=== PATIENT | male | born 1950 | race Caucasian/White ===

== ENCOUNTER → 2018-07-20 | Outpatient (REF) | payer MEDICARE, OTHER | LOC: M LAB REF 12:39 | DX: M10.072 Idiopathic gout, left ankle and foot (principal) | CPT/HCPCS: 84550 ==

== ENCOUNTER → 2018-09-09 | Outpatient (REF) | payer MEDICARE, OTHER ==
[~2018-09-09] MED LIST: ASPI1TAB PO; ENALAPRIL; LIPITOR; MULT1TAB10 PO; PROAAER10 IN
[2018-09-09 18:02] LABS: BASO % 0.6 % (0.0-1.0); EOS # 0.1 10^3/uL (0.0-0.50); EOS % 1.3 % (0.0-3.0); HEMATOCRIT 44.9 % (42.0-52.0); HEMOGLOBIN 14.9 g/dl (13.5-17.5); LYMPH # 1.4 10^3/uL (1.5-4.5); LYMPH % 26.1 % (24.0-44.0); MEAN CORPUSCULAR HEMOGLOBIN 30.3 pg (27.0-33.0); MEAN CORPUSCULAR HGB CONC 33.2 g/dl (32.0-36.5); MEAN CORPUSCULAR VOLUME 91.3 fl (80.0-96.0); MONO # 0.4 10^3/uL (0.0-0.8); MONO % 7.7 % (0.0-5.0); NEUTROPHILS # 3.3 10^3/uL (1.8-7.7); NEUTROPHILS % 63.9 % (36.0-66.0); PLATELET COUNT, AUTOMATED 165 10^3/uL (150-450); RED BLOOD COUNT 4.92 10^6/uL (4.30-6.10); WHITE BLOOD COUNT 5.2 10^3/uL (4.0-10.0)
[2018-09-09 18:44] LABS: ERYTHROCYTE SEDIMENTATION RATE 3 mm/hr (0-20)
== END ==
LOC: M LAB REF 16:57
PROVIDERS: ATTEND Internal Medicine Pulmonary Disease
DX: J84.9 Interstitial pulmonary disease, unspecified (principal)

== ENCOUNTER → 2018-09-17 | Outpatient (CLI) | payer MEDICARE, BC, OTHER ==
--- NOTE | 2018-09-17 16:20 | PFTRPT ---
Height: 71.00 Inches Weight: 180.00 Lbs BSA: 2.02 Diagnosis: J84.9 DATE OF PROCEDURE: 09/17/2018 ORDERED BY: Dr. Gonzalez Spirometry: Pulmonary function of excellent technical quality. Forced vital capacity normal. FEV1 in proportion. Obstructive index is, therefore, normal. Flow Volume Loop: Expiratory limb of the flow volume loop is normal. Lung Volumes: Slow vital capacity is in proportion. Diffusing Capacity: Diffusing capacity is normal. Hemoglobin: Hemoglobin acceptable at 16.2. IMPRESSION: Normal study. MTDD
== END ==
LOC: M CARPUL 14:40
PROVIDERS: ATTEND Internal Medicine Pulmonary Disease
DX: J84.9 Interstitial pulmonary disease, unspecified (principal)

== ENCOUNTER → 2020-06-20 | Outpatient (CLI) | payer MEDICARE, BC, OTHER ==
[~2020-06-20] MED LIST changes: -ASPI1TAB PO; +ASPI81TA26 PO
[2020-06-20 13:58] LABS: BASO % 0.9 % (0.0-1.0); EOS # 0.1 10^3/uL (0.0-0.5); EOS % 3.1 % (0.0-3.0); HEMATOCRIT 45.7 % (42.0-52.0); HEMOGLOBIN 15.1 g/dl (13.5-17.5); LYMPH # 1.3 10^3/uL (1.5-5.0); LYMPH % 28.6 % (24.0-44.0); MEAN CORPUSCULAR HEMOGLOBIN 31.1 pg (27.0-33.0); MONO # 0.7 10^3/uL (0.0-0.8); MONO % 14.5 % (0.0-5.0); NEUTROPHILS # 2.4 10^3/uL (1.5-8.5); PLATELET COUNT, AUTOMATED 175 10^3/uL (150-450); RED BLOOD COUNT 4.86 10^6/uL (4.30-6.10); WHITE BLOOD COUNT 4.6 10^3/uL (4.0-10.0)
[2020-06-20 14:32] LABS: BILIRUBIN,TOTAL 0.6 MG/DL (0.2-1.0); BLOOD UREA NITROGEN 23 MG/DL (7-18); CARBON DIOXIDE LEVEL 26 MEQ/L (21-32); CHLORIDE LEVEL 111 MEQ/L (98-107); CREATININE FOR GFR 0.92 MG/DL (0.70-1.30); GLOMERULAR FILTRATION RATE > 60.0 (>42); GLUCOSE, FASTING 84 MG/DL (70-100); POTASSIUM SERUM 4.3 MEQ/L (3.5-5.1); SODIUM LEVEL 142 MEQ/L (136-145); TOTAL PROTEIN 6.8 GM/DL (6.4-8.2)
[2020-06-20 14:37] LABS: ERYTHROCYTE SEDIMENTATION RATE 5 mm/hr (0-20)
[2020-06-20 17:14] LABS: ALT/SGPT 30 U/L (12-78)
== END ==
LOC: M LAB 13:20
PROVIDERS: ATTEND Internal Medicine Rheumatology
DX: M35.9 Systemic involvement of connective tissue, unspecified (principal); Z79.899 Other long term (current) drug therapy

== ENCOUNTER → 2022-09-27 | Outpatient (REF) | payer MEDICARE, OTHER, BC | LOC: M LAB REF 11:51 | PROVIDERS: ATTEND Internal Medicine | DX: M35.9 Systemic involvement of connective tissue, unspecified (principal); R76.8 Other specified abnormal immunological findings in serum ==

== ENCOUNTER → 2022-11-20 | Outpatient (REF) | payer MEDICARE, OTHER, BC | LOC: M LAB REF 11:26 | PROVIDERS: ATTEND Internal Medicine | DX: M10.072 Idiopathic gout, left ankle and foot (principal) ==

== ENCOUNTER → 2023-01-03 | Outpatient (CLI) | payer MEDICARE, OTHER, BC | LOC: M PLAIMG 13:48 | PROVIDERS: ATTEND Internal Medicine Pulmonary Disease | DX: J84.9 Interstitial pulmonary disease, unspecified (principal) ==

== ENCOUNTER → 2023-01-07 | Outpatient (CLI) | payer MEDICARE, BC, OTHER ==
[2023-01-07 12:20] LABS: HEMATOCRIT 47.5 % (42.0-52.0); HEMOGLOBIN 15.9 g/dl (13.5-17.5); MEAN CORPUSCULAR HEMOGLOBIN 30.9 pg (27.0-33.0); MEAN CORPUSCULAR HGB CONC 33.5 g/dl (32.0-36.5); MEAN CORPUSCULAR VOLUME 92.2 fl (80.0-96.0); PLATELET COUNT, AUTOMATED 185 10^3/uL (150-450); RED BLOOD COUNT 5.15 10^6/uL (4.30-6.10); WHITE BLOOD COUNT 4.6 10^3/uL (4.0-10.0)
[2023-01-07 12:31] LABS: ALKALINE PHOSPHATASE 77 U/L (46-116); ALT/SGPT 28 U/L (7.0-40); AST/SGOT 24 U/L (<34); BILIRUBIN,TOTAL 0.9 MG/DL (0.3-1.2); BLOOD UREA NITROGEN 17 MG/DL (9-23); CALCIUM LEVEL 9.5 MG/DL (8.3-10.6); CARBON DIOXIDE LEVEL 26 MMOL/L (20-31); CHLORIDE LEVEL 107 MMOL/L (98-107); CREATININE FOR GFR 0.81 MG/DL (0.70-1.30); GLOMERULAR FILTRATION RATE > 60.0 (>42); GLUCOSE, FASTING 175 MG/DL (74-106); POTASSIUM SERUM 3.8 MMOL/L (3.5-5.1); SODIUM LEVEL 140 MMOL/L (136-145); TOTAL PROTEIN 6.7 G/DL (5.7-8.2)
== END ==
LOC: M LAB 11:19
PROVIDERS: ATTEND Internal Medicine Pulmonary Disease
DX: J84.9 Interstitial pulmonary disease, unspecified (principal)

== ENCOUNTER → 2023-01-14 | Outpatient (CLI) | payer MEDICARE, BC, OTHER ==
[~2023-01-14] MED LIST changes: +ISOVUE-370 76% 100ML VIAL As Ordered ONE
== END ==
LOC: M RAD 09:53
PROVIDERS: ATTEND Internal Medicine Pulmonary Disease
DX: J84.9 Interstitial pulmonary disease, unspecified (principal); R06.00 Dyspnea, unspecified; M35.02 Sjogren syndrome with lung involvement
CPT/HCPCS: 71275; Q9967

== ENCOUNTER 2023-01-28 16:10 | Observation (INO) | payer MEDICARE, BC, OTHER ==
[2023-01-27 20:31] VITALS: BP 160/66
[~2023-01-28] VITALS: Ht 180.3 cm; Wt 84.9 kg
[~2023-01-28 16:10] MED LIST changes: -ISOVUE-370 76% 100ML VIAL As Ordered ONE
[2023-01-28 16:51] LABS: BASO % 0.6 % (0.0-1.0); EOS % 0.2 % (0.0-3.0); HEMOGLOBIN 15.8 g/dl (13.5-17.5); LYMPH # 0.9 10^3/uL (1.5-5.0); LYMPH % 18.6 % (24.0-44.0); MEAN CORPUSCULAR HEMOGLOBIN 31.2 pg (27.0-33.0); MEAN CORPUSCULAR HGB CONC 33.6 g/dl (32.0-36.5); MEAN CORPUSCULAR VOLUME 92.9 fl (80.0-96.0); MONO # 0.5 10^3/uL (0.0-0.8); MONO % 11.7 % (2.0-8.0); NEUTROPHILS # 3.1 10^3/uL (1.5-8.5); NEUTROPHILS % 66.7 % (36.0-66.0); PLATELET COUNT, AUTOMATED 180 10^3/uL (150-450); RED BLOOD COUNT 5.06 10^6/uL (4.30-6.10); WHITE BLOOD COUNT 4.6 10^3/uL (4.0-10.0)
[2023-01-28] MEDS ORDERED: AMLO1TAB24 PO (17:25)
[2023-01-28 17:33] LABS: ALBUMIN 4.2 G/DL (3.2-5.2); ALKALINE PHOSPHATASE 68 U/L (46-116); ALT/SGPT 67 U/L (7.0-40); AST/SGOT 64 U/L (<34); BILIRUBIN,DIRECT 0.2 MG/DL (<0.4); BILIRUBIN,TOTAL 0.9 MG/DL (0.3-1.2); BLOOD UREA NITROGEN 20 MG/DL (9-23); CALCIUM LEVEL 9.9 MG/DL (8.3-10.6); CARBON DIOXIDE LEVEL 27 MMOL/L (20-31); CHLORIDE LEVEL 107 MMOL/L (98-107); CREATININE FOR GFR 0.79 MG/DL (0.70-1.30); FREE T4 1.11 NG/DL (0.89-1.76); GLOMERULAR FILTRATION RATE > 60.0 (>42); GLUCOSE, FASTING 115 MG/DL (74-106); LIPASE 53 U/L (12-53); MAGNESIUM LEVEL 2.3 MG/DL (1.8-2.4); POTASSIUM SERUM 5.8 MMOL/L (3.5-5.1); SODIUM LEVEL 139 MMOL/L (136-145); THYROID STIMULATING HORMONE 0.601 uIU/ML (0.55-4.78); TOTAL PROTEIN 7.1 G/DL (5.7-8.2)
[2023-01-28] MEDS ORDERED: THERTAB21 PO (18:48)
[2023-01-28] MEDS ORDERED: PRED20TA PO (18:48)
[2023-01-28] MEDS ORDERED: VENTAER INH (18:48)
[2023-01-28] MEDS ORDERED: PRED1TABL PO (18:48)
[2023-01-28] MEDS ORDERED: BIMA01SOL OU (18:48)
[2023-01-28] MEDS ORDERED: TADA20TA PO (18:48)
[2023-01-28] MEDS ORDERED: LOSA100T46 PO (18:48)
[2023-01-28] MEDS ORDERED: DORZ2SOL4 OU (18:48)
[2023-01-28] MEDS ORDERED: ATOR40TA75 PO (18:48)
[2023-01-28] MEDS ORDERED: CYCL5TAB PO (18:48)
[2023-01-28] MEDS ORDERED: MYCO500T PO (18:48)
[2023-01-28] MEDS ORDERED: HOME MED LIST COMPLETE! XX SCH (18:50)
[2023-01-28 18:59] LABS: RSV AMPLIFICATION NEGATIVE (NEGATIVE)
[2023-01-28] MEDS ORDERED: ALBUTEROL 90 MCG/ACT 8GM HFA INHALER INH PRN (19:10)
[2023-01-28] MEDS ORDERED: amLODIPine 5 MG TAB PO SCH (21:00)
[2023-01-28] MEDS ORDERED: LOSARTAN 50MG TABLET PO SCH (21:00)
[2023-01-28 22:17] VITALS: BP 154/70
[2023-01-28] MEDS: DORZOLAMIDE 2% OPHTH SOLN 10 ML BTL OU SCH (22:17)
[2023-01-28] MEDS: MYCOPHENOLATE MOFETIL 250 MG CAP (J7517) PO SCH (23:11)
[2023-01-29 05:55] VITALS: BP 143/84
[2023-01-29 07:07] LABS: HEMATOCRIT 43.6 % (42.0-52.0); HEMOGLOBIN 14.6 g/dl (13.5-17.5); MEAN CORPUSCULAR HEMOGLOBIN 31.4 pg (27.0-33.0); MEAN CORPUSCULAR HGB CONC 33.5 g/dl (32.0-36.5); MEAN CORPUSCULAR VOLUME 93.8 fl (80.0-96.0); PLATELET COUNT, AUTOMATED 164 10^3/uL (150-450); RED BLOOD COUNT 4.65 10^6/uL (4.30-6.10)
[2023-01-29 07:43] LABS: BLOOD UREA NITROGEN 15 MG/DL (9-23); CARBON DIOXIDE LEVEL 30 MMOL/L (20-31); CHLORIDE LEVEL 106 MMOL/L (98-107); CREATININE FOR GFR 0.77 MG/DL (0.70-1.30); GLOMERULAR FILTRATION RATE > 60.0 (>42); GLUCOSE, FASTING 91 MG/DL (74-106); POTASSIUM SERUM 3.4 MMOL/L (3.5-5.1); SODIUM LEVEL 141 MMOL/L (136-145)
[2023-01-29] MEDS: MYCOPHENOLATE MOFETIL 250 MG CAP (J7517) PO SCH (08:00)
[2023-01-29] MEDS: DORZOLAMIDE 2% OPHTH SOLN 10 ML BTL OU SCH (08:01)
[2023-01-29] MEDS ORDERED: ASPIRIN 81MG ENTERIC TABLET PO SCH (09:00)
[2023-01-29] MEDS ORDERED: predniSONE 20 MG TAB PO SCH (09:00)
[2023-01-29] MEDS ORDERED: ENOXAPARIN 40MG/0.4ML SYRINGE (J1650 PER 10MG) SC SCH (09:00)
[2023-01-29] MEDS ORDERED: ATORVASTATIN 20 MG TAB PO SCH (09:00)
[2023-01-29] MEDS ORDERED: MULTIVITAMINS/MINERALS THERAP 1 TAB PO SCH (09:00)
[2023-01-29] MEDS ORDERED: POTASSIUM CHLORIDE 10MEQ SR TABLET PO ONE (12:10)
== END 2023-01-29 12:28 | disposition home or self-care (01) ==
LOC: M ED 16:10 → EDBD 16:10 → M ED INP 16:11 → M MSPAV 20:26
PROVIDERS: ADMIT Internal Medicine; ATTEND Internal Medicine
DX: R00.1 Bradycardia, unspecified (principal); I49.3 Ventricular premature depolarization; R55 Syncope and collapse; R00.8 Other abnormalities of heart beat; J84.9 Interstitial pulmonary disease, unspecified; M35.00 Sjogren syndrome, unspecified; M51.9 Unspecified thoracic, thoracolumbar and lumbosacral intervertebral disc disorder; I11.9 Hypertensive heart disease without heart failure; E78.5 Hyperlipidemia, unspecified; H40.9 Unspecified glaucoma; M48.14 Ankylosing hyperostosis [Forestier], thoracic region; Z79.899 Other long term (current) drug therapy; Z79.82 Long term (current) use of aspirin; Z79.52 Long term (current) use of systemic steroids
CPT/HCPCS: 36415; 71045; 80048; 80076; 83690; 83735; 84132; 84439; 84443; 85025; 85027; 87631; 93005; 93041; 94760; 99285; G0378; J7517

== ENCOUNTER → 2023-10-17 | Outpatient (CLI) | payer MEDICARE, BC, OTHER ==
[~2023-10-17] MED LIST changes: +AMLO1TAB24 PO; +ATOR40TA75 PO; +BIMA01SOL OU; +CYCL5TAB PO; +DORZ2SOL4 OU; +LOSA100T46 PO; +MYCO500T PO; +PRED1TABL PO; +PRED20TA PO; +TADA20TA PO; +THERTAB21 PO; +VENTAER INH
[2023-10-17 13:29] LABS: EOS # 0.1 10^3/uL (0.0-0.5); EOS % 2.3 % (0.0-3.0); HEMATOCRIT 46.9 % (42.0-52.0); HEMOGLOBIN 15.9 g/dl (13.5-17.5); LYMPH # 1.1 10^3/uL (1.5-5.0); LYMPH % 27.2 % (24.0-44.0); MEAN CORPUSCULAR HEMOGLOBIN 31.1 pg (27.0-33.0); MEAN CORPUSCULAR HGB CONC 33.9 g/dl (32.0-36.5); MEAN CORPUSCULAR VOLUME 91.8 fl (80.0-96.0); MONO # 0.8 10^3/uL (0.0-0.8); MONO % 19.4 % (2.0-8.0); NEUTROPHILS # 1.9 10^3/uL (1.5-8.5); NEUTROPHILS % 49.3 % (36.0-66.0); PLATELET COUNT, AUTOMATED 178 10^3/uL (150-450); RED BLOOD COUNT 5.11 10^6/uL (4.30-6.10); WHITE BLOOD COUNT 3.9 10^3/uL (4.0-10.0)
[2023-10-17 13:45] LABS: ERYTHROCYTE SEDIMENTATION RATE 15 mm/hr (0-20)
[2023-10-17 14:07] LABS: ALBUMIN 3.9 G/DL (3.2-5.2); ALKALINE PHOSPHATASE 71 U/L (46-116); ALT/SGPT 20 U/L (7.0-40); AST/SGOT 21 U/L (<34); BILIRUBIN,TOTAL 0.6 MG/DL (0.3-1.2); BLOOD UREA NITROGEN 16 MG/DL (9-23); CALCIUM LEVEL 10.4 MG/DL (8.3-10.6); CARBON DIOXIDE LEVEL 28 MMOL/L (20-31); CHLORIDE LEVEL 109 MMOL/L (98-107); CREATININE FOR GFR 0.74 MG/DL (0.70-1.30); GLOMERULAR FILTRATION RATE > 60.0 (>42); GLUCOSE, FASTING 119 MG/DL (74-106); POTASSIUM SERUM 3.9 MMOL/L (3.5-5.1); SODIUM LEVEL 144 MMOL/L (136-145); TOTAL PROTEIN 6.6 G/DL (5.7-8.2)
== END ==
LOC: M LAB 11:59
PROVIDERS: ATTEND Internal Medicine Rheumatology
DX: J84.9 Interstitial pulmonary disease, unspecified (principal); M35.9 Systemic involvement of connective tissue, unspecified; Z79.899 Other long term (current) drug therapy

== ENCOUNTER 2024-01-12 09:27 | Day surgery (SDC) | payer MEDICARE, BC ==
[~2024-01-12] VITALS: Ht 180.3 cm; Wt 82.3 kg
[~2024-01-12 09:27] MED LIST changes: +CALC500C16 PO; +ELIQ5TAB PO; +THERTAB52 PO
[2024-01-12] MEDS: NS 1,000 ML IV ONE (09:43)
[2024-01-12] MEDS ORDERED: LIDOCAINE 2% 100MG/5ML SDV (FOR ANES.) As Ordered ONE (10:10)
[2024-01-12] MEDS ORDERED: propofoL 200 MG/20 ML VIAL As Ordered ONE (10:10)
[2024-01-12 12:30] VITALS: BP 134/80; O2SAT 95
== END 2024-01-12 12:29 | disposition home or self-care (01) ==
LOC: M OPP 09:27
PROVIDERS: ATTEND Internal Medicine Gastroenterology
DX: Z12.11 Encounter for screening for malignant neoplasm of colon (principal); D12.0 Benign neoplasm of cecum; K64.0 First degree hemorrhoids; K57.30 Diverticulosis of large intestine without perforation or abscess without bleeding; I10 Essential (primary) hypertension; Z79.01 Long term (current) use of anticoagulants; Z79.02 Long term (current) use of antithrombotics/antiplatelets; Z79.52 Long term (current) use of systemic steroids; Z79.620 Long term (current) use of immunosuppressive biologic; Z79.899 Other long term (current) drug therapy

== ENCOUNTER 2024-08-30 06:44 | Day surgery (SDC) | payer MEDICARE, BC ==
[~2024-08-30] VITALS: Ht 180.3 cm; Wt 81.6 kg
[~2024-08-30 06:44] MED LIST changes: -CYCL5TAB PO; +CYCL5TAB4 PO; +XALA0.007
[2024-08-30] MEDS ORDERED: LIDOCAINE 2% 100MG/5ML SDV (FOR ANES.) As Ordered ONE (07:31)
[2024-08-30] MEDS ORDERED: propofoL 200 MG/20 ML VIAL As Ordered ONE (07:31)
[2024-08-30 08:02] VITALS: TEMP 98
[2024-08-30 08:22] VITALS: BP 114/57; O2SAT 93
== END 2024-08-30 08:27 | disposition home or self-care (01) ==
LOC: M OPP 06:44
PROVIDERS: ATTEND Internal Medicine Gastroenterology
DX: D12.0 Benign neoplasm of cecum (principal); D12.3 Benign neoplasm of transverse colon; K64.0 First degree hemorrhoids; K57.30 Diverticulosis of large intestine without perforation or abscess without bleeding; Z87.19 Personal history of other diseases of the digestive system; I10 Essential (primary) hypertension; E78.00 Pure hypercholesterolemia, unspecified; J84.89 Other specified interstitial pulmonary diseases; Z79.52 Long term (current) use of systemic steroids; Z79.899 Other long term (current) drug therapy; Z79.01 Long term (current) use of anticoagulants; Z90.89 Acquired absence of other organs

== ENCOUNTER → 2024-11-10 | Outpatient (CLI) | payer MEDICARE, BC ==
[2024-11-10 15:09] LABS: BASO # 0.1 10^3/uL (0.0-0.2); BASO % 1.2 % (0.0-1.0); EOS # 0.2 10^3/uL (0.0-0.5); EOS % 3.1 % (0.0-3.0); HEMATOCRIT 48.4 % (42.0-52.0); HEMOGLOBIN 15.9 g/dl (13.5-17.5); LYMPH # 1.5 10^3/uL (1.5-5.0); LYMPH % 28.9 % (24.0-44.0); MEAN CORPUSCULAR HEMOGLOBIN 30.2 pg (27.0-33.0); MEAN CORPUSCULAR HGB CONC 32.9 g/dl (32.0-36.5); MEAN CORPUSCULAR VOLUME 91.8 fl (80.0-96.0); MONO # 0.8 10^3/uL (0.0-0.8); MONO % 15.1 % (2.0-8.0); NEUTROPHILS # 2.7 10^3/uL (1.5-8.5); NEUTROPHILS % 51.3 % (36.0-66.0); PLATELET COUNT, AUTOMATED 210 10^3/uL (150-450); RED BLOOD COUNT 5.27 10^6/uL (4.30-6.10); WHITE BLOOD COUNT 5.2 10^3/uL (4.0-10.0)
[2024-11-10 15:14] LABS: C REACTIVE PROTEIN QUANTITATIV < 0.50 MG/DL (<1.0)
[2024-11-10 15:15] LABS: ALBUMIN 4.1 G/DL (3.2-5.2); ALKALINE PHOSPHATASE 82 U/L (40-129); ALT/SGPT 20 U/L (7.0-40); AST/SGOT 16 U/L (<34); BILIRUBIN,TOTAL 0.7 MG/DL (0.3-1.2); BLOOD UREA NITROGEN 18 MG/DL (9-23); CALCIUM LEVEL 10.6 MG/DL (8.3-10.6); CARBON DIOXIDE LEVEL 30 MMOL/L (20-31); CHLORIDE LEVEL 107 MMOL/L (98-107); CREATININE FOR GFR 0.82 MG/DL (0.70-1.30); GLOMERULAR FILTRATION RATE > 60.0 (>42); GLUCOSE, FASTING 132 MG/DL (74-106); POTASSIUM SERUM 4.2 MMOL/L (3.5-5.1); SODIUM LEVEL 147 MMOL/L (136-145); TOTAL PROTEIN 7.2 G/DL (5.7-8.2)
[2024-11-10 15:16] LABS: TOTAL 25(OH) VITAMIN D 27.8 NG/ML (20.0-100.0)
[2024-11-10 15:29] LABS: ERYTHROCYTE SEDIMENTATION RATE 14 mm/hr (0-20)
== END ==
LOC: M WUC 10:48
PROVIDERS: ATTEND Internal Medicine Rheumatology
DX: M35.9 Systemic involvement of connective tissue, unspecified (principal); J84.9 Interstitial pulmonary disease, unspecified; R76.8 Other specified abnormal immunological findings in serum; Z79.899 Other long term (current) drug therapy